=== PATIENT | male | born 1965 | race Caucasian/White ===

== ENCOUNTER 2023-08-29 11:49 | Emergency (ER) | payer MEDICARE, MEDICAID, SELFPAY ==
[2023-08-29 11:56] VITALS: BP 113/74; PULSE 78; RESP 20; TEMP 37.1; O2SAT 97
--- NOTE | 2023-08-29 12:15 | DI.CT_ITS ---
Exam(s) CT ABDOMEN PELVIS W EXAM: CT ABDOMEN PELVIS W CLINICAL HISTORY: lower abdominal pain and LUQ. TECHNIQUE: Imaging Protocol: Axial computed tomography images with coronal and sagittal reformatted images were created and reviewed CONTRAST MATERIAL: Intravenous: Omnipaque-350 100cc Oral: None COMPARISON: No exams were available for comparison FINDINGS: VISUALIZED LUNG BASES: No nodules nor pleural effusions evident. ABDOMEN: GI: There is a moderate-large size hiatal hernia. There is circumferential thickening of the stomach at the level of the pylorus, possibly upper normal but difficult to evaluate without oral contrast. There is no evidence of bowel obstruction, free air, nor abscess. Branches of the superior mesenter ic vein reveal flow admixture artifact which is most probably a combination of enhance and nonenhance d intraluminal blood. There is no evidence of intraluminal thrombus within the splenic vein and port al vein confluence nor within the main portal vein and intrahepatic portal veins. LIVER: There are no focal hepatic lesions evident. No dilated intrahepatic ducts. GALLBLADDER/BILIARY: No obvious gallbladder pathology. CBD is not dilated. PANCREAS: No evidence of pancreatic mass nor dilatation of the pancreatic duct. SPLEEN: Spleen is not enlarged. No obvious intrasplenic lesions. Splenic and portal veins are paten t. ADRENALS: There are no significant adrenal masses. KIDNEYS:There is a benign exophytic cyst off the lateral cortex of the left kidney which measures 2.8 x 2.6 cm and does not require further imaging workup. Few smaller sub cm cortical cysts are also not ed lower down the left kidney.. There are no significant focal findings in the right kidney. There ar e no solid renal masses, calculi, nor hydronephrosis.. ABDOMINAL AORTA: Abdominal aorta is not enlarged. Iliac arteries not enlarged. VENOUS: There is asymmetry in the amount of contrast within the femoral and iliac veins. There is zeinab ogeneous contrast within left-sided veins and lack of contrast within the right veins. There does not appear to be an obvious filling intraluminal filling defect. LYMPH NODES:There is no retroperitoneal nor paraaortic adenopathy. ABDOMINAL WALL: No evidence of significant anterior abdominal wall nor inguinal hernia. GI: There is no evidence of bowel obstruction, free air, nor abscess. PELVIS: GI: No evidence of appendicitis.No evidence of significant sigmoid diverticular disease. LYMPH NODES: There is no intrapelvic nor inguinal adenopathy. REPRODUCTIVE: Prostate size normal. Seminal vesicles unremarkable. URINARY BLADDER: There is uniform thickening of the urinary bladder wall. No diverticuli. There is sy mmetrical mild columnnization of entire length of both ureters noted. There are no radiopaque calculi in the lower ureters. No distinct focal bladder mass. OSSEOUS: No fractures and no significant osseous lesions. IMPRESSION: 1. In this patient has left lower quadrant abdominal pain there is no evidence of significant sigmoid diverticular disease, inguinal hernia, nor other obvious finding in the left lower quadrant. 2. There is no evidence of acute appendicitis. 3. There is diffuse uniform thickening of the urinary bladder wall possibly related to cystitis. In a ddition, both ureters are mildly dilated throughout their length without evidence of calculi nor othe r obstructing lesions in the lower ureters and bladder. Consider urology consultation. 4. Asymmetric contrast enhancement within the bilateral femoral and iliac veins in the pelvis without obvious intraluminal filling defect. Other findings as above. Report called by myself to ER provider. RADIATION DOSE DELIVERED: 1,082.5mGy.cm Total DLP DATA REPOSITORY: All CT scans at this facility are submitted to the National Radiology Data Registry (NRDR) Dose Index Registry (DIR) with the [employer] (A[employer]). RADIATION OPTIMIZATION: All CT scans at this facility use at least one of these dose optimization te chniques: automated exposure control; mA and/or kV adjustment per patient size (includes targeted exa ms where dose is matched to clinical indication); or iterative reconstruction.
--- NOTE | 2023-08-29 12:23 | ED.GENADUL_ITS ---
Discharge Plan Disposition Patient Disposition: Against Medical Advice Condition: Stable Discharge Details Chief Complaint: Male Reproductive Problem Clinical Impression: Acute flank pain Primary Care Provider: Val Grover ED Provider: Anushka Martinez Home Meds and New Rx's Prescriptions: No Action dextroamphetamine-amphetamine [Adderall] 15 mg tablet 15 mg PO BID Rx Instructions: administer doses at least 4-6 hours apart naltrexone 50 mg tablet 50 mg PO DAILY tamsulosin 0.4 mg capsule 0.4 mg PO DAILY HPI General Date/Time Provider Initiated Documentation: 08/29/23 12:04 . Limitations to Documentation: no limitations . Information obtained by: patient, RN notes reviewed and old records reviewed . History of Present Illness 58 year old M presents to the emergency department with the chief complaint of abdominal pain, radiates into left testicle , described as moderate, Quality is described as aching, and is localized to the abdomen. Patient reports radiation to (intermitently will radiate into left testicle). Patient started experiencing this week(s) and it has been constant. No relieving factors improve symptom(s), No exacerbating factors reported . Patient notes loss of appetite; denies chest pain, diaphoresis, fever/chills, malaise, nausea/vomiting, rash and shortness of breath. Patient did receive the following treatments prior to arrival, none Related Data Home Medications Medication Instructions Recorded Confirmed dextroamphetamine-amphetamine 15 15 mg PO BID 07/24/23 08/29/23 mg tablet (Adderall) naltrexone 50 mg tablet 50 mg PO DAILY 07/24/23 08/29/23 tamsulosin 0.4 mg capsule 0.4 mg PO DAILY 07/24/23 08/29/23 Allergies Allergy/AdvReac Type Severity Reaction Status Date / Time No Known Allergies Allergy Verified 08/29/23 11:59 General Stated Complaint: Male Reproductive Problem JAZMYN: 3 Review of Systems Constitutional Constitutional: Reports as per HPI, Denies chills, Denies fever(s) and Denies headache(s) ENT Ears, Nose, Mouth, and Throat: Denies headache(s) Cardiovascular Cardiovascular: Reports as per HPI, Denies chest pain and Denies dyspnea Respiratory Respiratory: Reports as per HPI, Denies cough and Denies dyspnea Gastrointestinal Gastrointestinal: Reports as per HPI, Reports abdominal pain, Denies constipation, Denies diarrhea, Denies loose stools, Denies vomiting and Denies hematemesis Genitourinary Genitourinary: Reports as per HPI, Denies genital pain, Denies dysuria, Reports flank pain (left), Denies painful ejaculations, Denies penile discharge, Denies scrotal swelling, Denies testicular mass, Reports testicular pain, Denies urinary incontinence and Denies urinary urgency Musculoskeletal Musculoskeletal: Reports as per HPI Integumentary/Breasts Skin/Breast: Reports as per HPI and Denies rash Neurologic Neurologic: Reports as per HPI and Denies headache(s) Exam Const General: cooperative, healthy appearing, comfortable, no acute distress and well developed Nutritional Appearance: average body habitus and well nourished Orientation: alert and awake [facility] Head: normal to inspection Mouth: moist mucous membranes Resp Effort & Inspection: normal respiratory effort, able to speak in complete sentences and no respiratory distress Auscultation: clear to auscultation bilaterally, no rales, no rhonchi and no wheezes Cardio Rate: regular rate Rhythm: regular rhythm Heart Sounds: S1 normal and S2 normal GI Inspection: normal to inspection, no edema and non-distended Palpation: soft, no hepatosplenomegaly, no guarding, no hernias, not rigid, tender suprapubicly and No ascites Percussion: normal to percussion Male General Exam: Yes normal external exam, No edema, No erythema, No inguinal lymphadenopathy, No lacerations and No tenderness Penis: normal penis Meatus: meatus normal Scrotum: scrotum normal, no ecchymosis, not edematous, no inguinal hernias, no masses and no scrotal swelling Testes: normal, testicular lie normal, no blue dot sign, not enlarged, no testicular mass, no testicular swelling and no testicular tenderness Back/Spine/Pelvis Back: no CVA tenderness Skin General skin exam: no rashes or lesions noted Trauma: no lacerations or abrasions Neuro General: patient alert and patient awake Cognition: normal cognition Speech: speech normal Gait: normal gait Psych Appearance: grossly normal and well kempt Mental Status: mental status grossly normal Speech and Movement: speech and movement normal Course Vital Signs Vital signs: Vital Signs Temperature 37.1 C 08/29/23 11:56 Pulse 78 08/29/23 11:56 Respiratory Rate 20 08/29/23 11:56 Blood Pressure 113/74 08/29/23 11:56 Pulse Oximetry 97 07/03/24 11:56 Temperature 37.1 C 08/29/23 11:56 Temperature Source Skin 08/29/23 11:56 Pulse 78 08/29/23 11:56 Respiratory Rate 20 08/29/23 11:56 Blood Pressure 113/74 08/29/23 11:56 Blood Pressure Position Sitting 08/29/23 11:56 Pulse Oximetry 97 08/29/23 11:56 Oxygen Delivery Method Room Air 08/29/23 11:56 Oxygen Flow Rate 0 08/29/23 11:56 Pain Level 7 08/29/23 11:56 Medical Decision Making Patient is a pleasant 58-year-old male with past medical history significant for alcohol abuse disorder, presenting today with chief complaint at lower abdominal pain that can radiate into the testicle. States he has been having pain for the past few weeks, was diagnosed with possible mass in the left kidney as well as in the bladder. However, over the past 2 weeks, since he was last seen, his pain has continued to increase. He can now have radiating pain that radiates into the left testicle. No testicular pain in itself, more the abdominal pain increases and then can radiate. He denies any nausea or vomiting. Has had a decrease in his appetite. No known weight loss. He does smoke marijuana daily. He had alcohol today prior to arrival. Patient is currently homeless. On exam, patient appears disheveled, does not appear acutely ill. He is hem odynamically stable. He does not appear intoxicated, appropriate discussion. Abdomen is without peritoneal findings. Pain is over the bladder as well as the left upper quadrant. He denies any blood in his urine. He has no lower extremity edema. With 2+ distal pulses. No palpable lymphadenopathy. Concern for potential cancer given his history, decreased appetite and concerning findings on imaging recently. As the pain has been increasing, I do feel that repeat imaging is warranted at this time. Will hydrate the patient. Will obtain labs, also considered potential infection, pancreatitis. Discussed these plans with the patient is agreement. He does not have any chest pain, shortness of breath, no epigastric pain. Symptoms are not brought on with movement, more so with food. Do not see need for evaluation of ACS at this time his clinical history is not consistent for this. Prior to labs and imaging returning, patient demanded nursing staff remove his IV and patient eloped from the department. Patient does not appear acutely ill, no peritoneal findings on his exam. This sounds like he is more concerned about a chronic illness. Unclear what caused him to escalate as we did discuss his chronic alcohol use. However, patient did not appear to be in any withdrawals, he did not appear acutely inebriated or intoxicated. Patient did demonstrate capacity. IV was removed prior to patient leaving. After patient eloped from the department,labs reviewed without acute abnormality. Imaging reviewed, had thickening of urinary blodder, possible cystitis. Radiologist recommends urology consult but, per patient, he has these referrals in place after recent work up. Mass on the kidney visualized, consistent with cyst that does not require further evaluation. Quality:SDOH Health Related Social Needs: Health related social needs inadequate housing PFSH All Active Problems (Updated 08/29/23 @ 16:44 by HUY Grier) Acute flank pain (Acute) Medical History (Updated 08/29/23 @ 16:44 by HUY Grier) Urinary incontinence Smoker Erectile dysfunction PTSD (post-traumatic stress disorder) Pain, joint, shoulder, left Pain in thoracic spine Microscopic hematuria BPH w urinary obs/LUTS Lesion of ulnar nerve Hand joint pain Fracture of ankle Dizziness and giddiness Depressive disorder Depressed bipolar disorder Chronic post-traumatic headache Cervical disc disorder CTS (carpal tunnel syndrome) OAB (overactive bladder) ADHD Alcohol dependence Surgical History (Updated 07/24/23 @ 11:28 by Sheryl Saucedo) S/p bilateral carpal tunnel release Social History (Updated 07/24/23 @ 11:28 by Sheryl Saucedo) Smoking/Tobacco Use Status: Current every day Tobacco Type: cigarettes Smoking risk assessment performed?: Yes Alcohol Intake: current Alcohol Intake frequency: 3 or more drinks per day Alcohol type: beer Drug use: Never Substance use type: does not use Housing: homeless Do you feel safe at home: Yes Do you feel safe in your relationship?: Yes
[2023-08-29 12:28] LABS: Bilirubin Negative (Negative); Blood Trace-intact (Negative); Clarity Clear (Clear); Glucose Negative (Negative); Ketones Negative (Negative); Leukocyte Esterase Negative (Negative); Nitrite Negative (Negative); Specific Gravity <= 1.005 (1.005-1.025); Urobilinogen 0.2 mg/dL (Up to 0.2)
[2023-08-29 12:29] LABS: Abs Immature Grans 0.01 10^3/uL (0.0-0.06); Absolute Basophil Count 0.06 10^3/uL (0.0-0.2); Absolute Eosinophil Count 0.06 10^3/uL (0.0-0.7); Absolute Lymphocyte Count 1.84 10^3/uL (1.2-3.4); Absolute Monocyte Count 0.66 10^3/uL (0.1-0.8); Absolute Neutrophil Count 4.29 10^3/uL (1.2-6.7); Basophils % 0.9 %; Eosinophils % 0.9 %; HCT 41.9 % (40.0-50.0); HGB 14.7 g/dL (13.5-17.5); Immature Grans % 0.1 %; Lymphocytes % 26.6 %; MCH 32.8 pg (27.0-33.0); MCHC 35.1 % (32.0-36.0); MCV 94 fL (80-95); MPV 11.4 fL (8.0-11.0); Monocytes % 9.5 %; Platelet Count 198 10^3/uL (130-400); RBC 4.48 10^6/uL (4.36-5.78); RDW 12.3 % (11.8-14.1); RDW-SD 42.8 fL; WBC 6.92 10^3/uL (4.4-10.8)
[2023-08-29] MEDS: Normal Saline 1,000 ML 1000 ML IV (12:29)
[2023-08-29 12:38] LABS: Epithelial Cells Rare HPF (Negative); WBC 0-2 HPF (0-5)
[2023-08-29 12:39] LABS: Bacteria Rare HPF (Negative); C & S Indicated? No; Casts Negative LPF (Negative); Crystals Negative HPF (Negative); Mucus Negative (Negative)
[2023-08-29 12:53] LABS: ALT 52 U/L (16-63); AST 47 U/L (15-37); Albumin 3.6 g/dL (3.4-5.0); Alkaline Phosphatase 94 U/L (46-116); BUN 5 mg/dL (7-18); Bilirubin, Total 0.63 mg/dL (0.2-1.0); CREATININE 0.7 mg/dL (0.70-1.30); Calcium 8.8 mg/dL (8.5-10.1); Chloride 103 mmol/L (98-107); Estimated GFR 108.14 (mL/min/1.73m2); Glucose 97 mg/dL (74-106); Lipase 73 U/L (16-77); Magnesium 1.8 mg/dL (1.8-2.4); Potassium 3.6 mmol/L (3.5-5.1); Sodium 140 mmol/L (136-145); Total Protein 6.6 g/dL (6.4-8.2)
[2023-08-29] MEDS: Normal Saline - Diluent 50 ML VIAL IJ (13:13)
[2023-08-29] MEDS: Omnipaque 350 MG/ML 100 ML BTL IJ (13:14)
--- NOTE | 2023-09-01 08:45 | NUR.NOTE ---
Spoke with Correctional nurse to provide clinical results for continuity of care from ED visit
== END 2023-08-29 13:46 | disposition left against medical advice (07) ==
PROVIDERS: Emergency Provider Physician Assistant; PCP Physician Assistant
DX: R10.9 Unspecified abdominal pain (principal); Z53.29 Procedure and treatment not carried out because of patient's decision for other reasons; F10.20 Alcohol dependence, uncomplicated; F31.9 Bipolar disorder, unspecified; Z79.899 Other long term (current) drug therapy; N28.89 Other specified disorders of kidney and ureter; Z59.10 Inadequate housing, unspecified
CPT/HCPCS: 36415; 80053; 83690; 96360; 99285; 74177; 81003; 81015; 83735; 85025; J3490